=== PATIENT | male | born 1935 | race Asian ===

== ENCOUNTER 2018-08-21 05:37 | Observation (INO) | payer OTHER, MEDICAID ==
[~2018-08-21] VITALS: Ht 182.9 cm; Wt 84.0 kg
[2018-08-21 07:39] LABS: BASOPHIL % 1.3 % (0-2); PLATELET COUNT 136 x10^3mcL (130-400); RED CELL DISTRIBUTION WIDTH 13.4 % (11.5-14.5)
[2018-08-21 07:55] LABS: CALCIUM 8.5 mg/dL (8.5-10.1); CARBON DIOXIDE 29.7 mmol/L (21-32); CHLORIDE SERUM 104 mmol/L (98-107); CREATININE SERUM 1.6 mg/dL (0.7-1.3); GLUCOSE SERUM 106 mg/dL (74-106); POTASSIUM SERUM 3.9 mmol/L (3.5-5.1); SODIUM SERUM 140 mmol/L (136-145)
[2018-08-21 08:08] LABS: ALKALINE PHOSPHATASE 83 U/L (46-116); ALT/SGPT 21 U/L (16-63); AST/SGOT 18 U/L (15-37); BILIRUBIN TOTAL 0.61 mg/dL (0.20-1.00); FREE T4 0.99 ng/dL (0.76-1.46); LIPASE 266 IU/L (73-393); TOTAL PROTEIN, SERUM 6.9 g/dL (6.4-8.2)
[2018-08-21 08:17] LABS: ALBUMIN 3.2 g/dL (3.4-5.0)
[2018-08-21] MEDS ORDERED: ZESTRIL5 MG PO (09:21)
[2018-08-21] MEDS ORDERED: LEVOTHYROXIN0.075 M2 PO (09:21)
[2018-08-21] MEDS ORDERED: AVODART0.5 M1 PO (09:22)
[2018-08-21] MEDS ORDERED: ATENOLOL25 MG PO (09:22)
[2018-08-21] MEDS ORDERED: TRICOR48 M1 PO (09:22)
[2018-08-21 10:32] VITALS: BP 123/75
[2018-08-21 12:10] VITALS: BP 130/69
[2018-08-21 12:18] LABS: CHOLESTEROL/HDL RATIO 3.8
[2018-08-21 15:48] LABS: microscopic required? YES; urine erythrocyte TRACE (NEGATIVE)
[2018-08-21 17:12] VITALS: BP 142/70
[2018-08-21 20:35] VITALS: BP 111/63
[2018-08-22 05:22] VITALS: Ht 182.9 cm; Wt 84.0 kg
[2018-08-22 05:46] VITALS: BP 102/53
[2018-08-22 06:54] LABS: BASOPHIL % 0.6 % (0-2); PLATELET COUNT 136 x10^3mcL (130-400); RED CELL DISTRIBUTION WIDTH 13.3 % (11.5-14.5)
[2018-08-22 07:06] LABS: CALCIUM 8.8 mg/dL (8.5-10.1); CARBON DIOXIDE 26.1 mmol/L (21-32); CHLORIDE SERUM 104 mmol/L (98-107); CREATININE SERUM 1.8 mg/dL (0.7-1.3); GLUCOSE SERUM 104 mg/dL (74-106); POTASSIUM SERUM 4.2 mmol/L (3.5-5.1); SODIUM SERUM 139 mmol/L (136-145)
[2018-08-22 08:29] VITALS: BP 102/56
[2018-08-22 12:33] VITALS: BP 105/51
[2018-08-22] MEDS ORDERED: ISOSORBIDE MONO30 MG PO (13:24)
[2018-08-22] MEDS ORDERED: NOR5 PO (13:24)
[2018-08-22] MEDS ORDERED: NIT0.4 SL (13:24)
[2018-08-22 13:56] VITALS: BP 105/51
== END 2018-08-22 15:00 | disposition home or self-care (01) | DRG 309 ==
LOC: ED 05:37 → DU 08:54
PROVIDERS: Emergency Medicine; ADMIT Internal Medicine
DX: R00.1 Bradycardia, unspecified (principal); Q61.3 Polycystic kidney, unspecified; T44.7X5A Adverse effect of beta-adrenoreceptor antagonists, initial encounter; I12.9 Hypertensive chronic kidney disease with stage 1 through stage 4 chronic kidney disease, or unspecified chronic kidney disease; N18.9 Chronic kidney disease, unspecified; E03.9 Hypothyroidism, unspecified; F17.210 Nicotine dependence, cigarettes, uncomplicated; Z68.25 Body mass index [BMI] 25.0-25.9, adult; Y92.009 Unspecified place in unspecified non-institutional (private) residence as the place of occurrence of the external cause
CPT/HCPCS: 83880; 84439; 85378; 87804; G0378; J1885; Q0092

== ENCOUNTER 2019-05-26 17:12 | Emergency (ER) | payer OTHER ==
[~2019-05-26] VITALS: Ht 182.9 cm; Wt 88.0 kg
[~2019-05-26 17:12] MED LIST: ATENOLOL25 MG PO; AVODART0.5 M1 PO; ISOSORBIDE MONO30 MG PO; LEVOTHYROXIN0.075 M2 PO; NIT0.4 SL; NOR5 PO; TRICOR48 M1 PO; ZESTRIL5 MG PO
[2019-05-26 17:17] VITALS: Ht 182.9 cm; Wt 88.0 kg
[2019-05-26 19:06] VITALS: BP 172/89
== END 2019-05-26 19:31 | disposition home or self-care (01) ==
LOC: ED 17:12
DX: J02.9 Acute pharyngitis, unspecified (principal); F17.210 Nicotine dependence, cigarettes, uncomplicated; I10 Essential (primary) hypertension; Z88.0 Allergy status to penicillin
CPT/HCPCS: 99406